=== PATIENT | male | born 1985 | race Caucasian/White ===

== ENCOUNTER 2024-07-22 13:21 | Outpatient (AMB) | payer BC, SELFPAY ==
--- NOTE | 2024-07-22 13:24 | MHC.PC.OV ---
Vital Signs 07/22/24 13:26 Height 5 ft 9 in Weight 159 lb 6 oz BMI 23.5 BP 124/82 Blood Pressure Location Lt brachial Position Sitting Pulse 97 Pulse Source Pulse Oximeter Pulse Oximetry (%) 97 Oxygen Delivery Method Room Air Intake Visit Reasons: establish care Allergies No Known Allergies Allergy (Verified 07/22/24 13:43) Medication List - Last Reconciled 07/22/24 by Elisa An PA-C No Known Home Meds Tobacco use date assessed: 07/22/24 Dental Screening Dental Screen Date: 07/22/24 Did you have a dental visit in the last 12 months?: No Did you have a dental problem in the last 6 months where you did not have access to dental care?: No Was dental information given to patient?: Patient has dentist HPI establish care HPI Details 39-year-old male coming office 1st time. Patient is not known to [facility]. Patient tells us today he has a history of hypothyroidism previously being treated on levothyroxine. His last PCP took him off of levothyroxine stated he did not need it. Since discontinuation he has been having issues with sweating profusely, hair thinning and mood changes. His sister was recently diagnosed with Princess's and pre cancer was determined by biopsy resulting in partial thyroidectomy. He also mentions having low energy and feeling fatigued throughout the day. 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 1. Little interest or pleasure in doing things: more than half the days 2. Feeling down, depressed, or hopeless: several days 3. Trouble falling or staying asleep, or sleeping too much: several days 4. Feeling tired or having little energy: more than half the days 5. Poor appetite or overeating: several days 6. Feeling bad about yourself - or that you are a failure or have let yourself or your family down: several days 7. Trouble concentrating on things, such as reading the newspaper or watching television: several days 8. Moving or speaking so slowly that other people could have noticed. Or the opposite - being so fidgety or restless that you have been moving around a lot more than usual: not at all 9. Thoughts that you would be better off or of hurting yourself in some way: several days Total score: 10 Depression Screening Interpretation: Positive Depression Screening Follow-up: Declines treatment Depression Screening Done: Yes 91073 - PHQ-9 Billing: Yes Source: Developed by Drs. Pavan Hall, Mila Walker, Gilles Nuñez and colleagues, with an educational desiree from [place]. Thrive Questionnaire Date Thrive assessed: 07/22/24 I am a: Patient What is your living situation today?: I have a steady place to live Within the past 12 months, did the food you bought not last and you didn't have the money to get more?: I choose not to answer this question Within the past 12 months, did you worry whether your food would run out before you got money to buy more?: I choose not to answer this question Do you have trouble paying for medicines?: No Do you have trouble getting transportation to medical appointments?: No Do you have trouble paying your heating and electricity bill?: No Do you have trouble taking care of your child, family member or friend?: No Do you have trouble with day-to-day activities such as bathing, preparing meals, shopping, managing finances, etc.?: No Are you currently unemployed and looking for a job?: No Are you interested in more education?: No Please select the resources that you would like help with: None Currently or been in a relationship where the following occur: I choose not to answer THRIVE Score: 0 AUDIT C Alcohol Use Questionnaire (AUDIT-C) 1. How often do you have a drink containing alcohol?: 2-3 times a week 2. How many drinks containing alcohol do you have on a typical day when you are drinking?: 1 or 2 3. How often do you have six or more drinks on one occasion?: Less than monthly Total Score: 4 YAJAIRA-7 AMB Questionnaire YAJAIRA-7 Date YAJAIRA - 7 assessed: 07/22/24 Feeling nervous, anxious, or on edge: 1 = Several days Not being able to stop or control worryin = Several days Worrying too much about different things: 1 = Several days Trouble relaxin = Several days Being so restless that it is hard to sit still: 0 = Not at all Becoming easily annoyed or irritable: 2 = More than half the days Feeling afraid as if something awful might happen: 2 = More than half the days Total YAJAIRA-7 score (0-4 normal; 5-9 mild; 10-14 moderate; 15-21 severe): 8 Source: Developed by Drs. Pavan Hall, Mila Walker, Gilles Nuñez and colleagues, with an educational desiree from [place]. YAJAIRA-7 Assessment Billing YAJAIRA-7 Assessment Tool: YAJAIRA-7 Assessment 14602 Review of Systems Const Denies body aches, Denies chills, Denies fever(s), Denies headache(s) and Denies poor appetite Eyes Reports no additional complaints ENT Denies dysphagia, Denies dizziness, Denies headache(s) and Denies odynophagia Card Denies chest pain, Denies syncope, Denies lightheadedness and Denies dyspnea Resp Denies cough and Denies dyspnea GI Denies abdominal pain, Denies dysphagia, Denies nausea, Denies odynophagia and Denies vomiting Reports no additional complaints Musc Reports no additional complaints and Denies abnormal gait Skin/Breast Reports system reviewed and no additional complaints, except as documented Neuro Denies abnormal gait, Denies dizziness, Denies syncope and Denies headache(s) Psych Reports no additional complaints Physical exam (Primary Care) Vital Signs: Last Vital Signs Pulse 97 07/22/24 13:26 BP 124/82 07/22/24 13:26 Pulse Ox 97 07/22/24 13:26 Oxygen Delivery Method Room Air 07/22/24 13:26 BMI result Body Mass Index 23.5 Tobacco/Smoking Status: Tobacco use Status Tobacco use date assessed 07/22/24 07/22/24 13:32 Patient Tobacco Use Status Never used Tobacco 07/22/24 13:35 e-Cigarette/Vaping Use Never Used 07/22/24 13:35 PHQ-9: PHQ-9 Score PHQ-9: Total score 10 07/22/24 13:51 Depression Screening Interpretation: Positive Depression Screening Follow-up: Declines treatment Thrive Assessment: Date of Thrive Assessment Date Thrive assessed 07/22/24 07/22/24 13:32 Currently or been in a relationship where the following occur: I choose not to answer Const General: cooperative, healthy appearing, comfortable and no acute distress Orientation/consciousness: patient oriented x3 HENMT Head: Yes normocephalic Ears: hearing grossly normal bilaterally General nose exam: Normal external nose present Eyes General: appearance normal, both eyes and all related structures Conjunctivae: conjunctivae normal Neck Neck: Yes full ROM and Yes no lymphadenopathy Thyroid: Thyroid normal, not diffusely enlarged, not firm, no masses and no nodules Resp Effort & Inspection: normal respiratory effort Auscultation: clear to auscultation bilaterally, no crackles, no rales, no rhonchi and no wheezes Cardio Rate: regular rate Rhythm: regular rhythm Skin General skin exam: no rashes or lesions noted Neuro General: patient oriented x3 Gait exam (Neuro): Normal gait present Extrem General: Yes normal to inspection, Yes full ROM and No edema Psych Affect: normal affect Attitude: cooperative Insight: Good insight present (Psych) Judgement: Good judgement present (Psych) Coding Level of Care Code New Pt Level 4 (79151) Diagnoses Hypothyroidism E03.9 Screening for hypercholesterolemia Z13.220 Excessive sweating R61 Polydipsia R63.1 Additional Codes YAJAIRA-7 Assessment Billing - YAJAIRA-7 Assessment Tool: YAJAIRA-7 Assessment 93233 ([id number]) PHQ-9 - 67162 - PHQ-9 Billing: Yes ([id number]) Assessment & Plan Assessment & Plan (1) Hypothyroidism: Code(s): E03.9 - Hypothyroidism, unspecified Category: Medical Plan: Ordered for updated blood work including thyroid antibodies to test for Princess's. On exam today patient's thyroid is not enlarged and no palpable nodules. Pending blood work can consider thyroid ultrasound for further evaluation. Plan to follow up in 1 month to review labs sooner if abnormality. Discussed restarting levothyroxine if needed. (2) Screening for hypercholesterolemia: Code(s): Z13.220 - Encounter for screening for lipoid disorders Category: Medical Plan: Tests ordered (3) Excessive sweating: Code(s): R61 - Generalized hyperhidrosis Category: Medical Plan: Patient complaining of excessive sweating since discontinuation of levothyroxine. Ordered for updated labs to look for underlying cause. (4) Polydipsia: Code(s): R63.1 - Polydipsia Category: Medical Plan: Patient complaining of increased thirst. Ordered for updated blood work including A1c to rule out diabetes mellitus. Plan Plan to follow up in 1 month or sooner if new problems arise. This note was constructed using voice recognition software. While every effort has been made to ensure accuracy and folded cloth taper, still areas may have been included sometimes these areas may affect the content or meeting of the given symptoms. Total time spent caring for the patient today was 30 minutes. This includes time spent before the visit reviewing the chart, time spent during the visit, and time spent after the visit and documentation. Orders: Orders Complete Blood Count Auto Diff Today Z00.00 - Encounter for general adult medical examination without abnormal findings Lipid Panel Today Z13.220 - Encounter for screening for lipoid disorders Vitamin B12 and Folate Today Z00.00 - Encounter for general adult medical examination without abnormal findings Vitamin D 25-OH Total Today Z00.00 - Encounter for general adult medical examination without abnormal findings Thyroglobulin Antibodies Today E03.9 - Hypothyroidism, unspecified TSH reflex Free T4 Today Z00.00 - Encounter for general adult medical examination without abnormal findings Free T4 (Free Thyroxine) Today Z00.00 - Encounter for general adult medical examination without abnormal findings Comprehensive Met. Panel Today Z00.00 - Encounter for general adult medical examination without abnormal findings Prolactin Today R61 - Generalized hyperhidrosis Hemoglobin A1c Today R61 - Generalized hyperhidrosis, R63.1 - Polydipsia Thyrotropin Receptor Antibody Today E03.9 - Hypothyroidism, unspecified
[2024-07-22 13:26] VITALS: BP 124/82; PULSE 97; O2SAT 97; BMI 23.5
== END 2024-07-22 14:01 | disposition home or self-care (01) ==
DX: E03.9 Hypothyroidism, unspecified (principal); Z13.220 Encounter for screening for lipoid disorders; R61 Generalized hyperhidrosis; R63.1 Polydipsia

== ENCOUNTER → 2024-07-22 13:21 | Outpatient (BNVA) | payer BC, SELFPAY | DX: E03.9 Hypothyroidism, unspecified (principal); R61 Generalized hyperhidrosis; R63.1 Polydipsia | CPT/HCPCS: 96127 ==

== ENCOUNTER 2024-07-29 10:08 | Outpatient (REF) | payer BC, SELFPAY ==
[2024-07-29 10:30] LABS: MANUAL DIFF FLAG NO
--- OUTSIDE RECORDS SUMMARY | 2024-07-29 10:54 | XMS_ITS | Data Portability ---
Author Organization [facility], , [facility] Address [address] [place] [address] Care Team Providers Care Director Of Enrollment Name Role Phone GAGAN JAMESON Ethanol Operations Manager VIPUL ORTEZ Primary Care Provider [phone] Assessment Encounter Date Assessment Date Assessment LastModified by Organization Details LastModified Time 04/23/2020 04/23/2020 Patient agreed to this visit via a secure telehealth platform due to the COVID -19 pandemic. Patient understands this is a scheduled visit and the usual procedures with regard to billing and confidentialit y apply. Patient was notified that the provider location is [facility] Patient location: home During the visit the patient? s medical history and medical record were reviewed. The patient was notified to call our office for worsening or urgent symptoms. [email or web address] Not available 04/23/2020 11:15:56 Plan of Treatment Reminders Order Date Submit Date Provider Last Modified By Organization Details Last Modified Time Details Appointments None recorded. Lab TSH, serum or plasma 2021 022 [facility], [address] [place] [address], [id number], 3 23:13:04 T3, free, serum or plasma 2021 022 [facility], [address] [place] [address], [id number], 3 23:13:01 T4, free, serum 2021 022 [facility], [address] [place] [address], [address], 3 23:13:02 mononucleo sis, heterophil e Ab, blood 2017 018 [facility], [address] [place] [address], [address], 8 14:55:00 Referral None recorded. Procedures None recorded. Surgeries None recorded. Imaging None recorded. Medication Orders amoxicilli n 875 mg-potassi um clavulanat e 125 mg tablet 2021 022 VINALHAVEN Sarah [address] ([facility]), [address] [place], [place], [id number], 2 10:12:08 levothyrox ine 50 mcg tablet 2019 020 [facility], [address] [place], [address], 0 11:19:39 Patient TargetsNo targets recorded. Patient Instructions Encounter Date Encounter Id Patient Instructions Last Modified By Organization Details Last Modified Time 09/11/2017 [id number] Spent 25 minutes of [id number] time, of which greater than 50% was in counseling. After a discussion of treatment options, which included consideration of best practices and patient preferences, the above treatment plan and objectives were adopted. [email or web address] Not available 09/12/2017 08:35:29 04/23/2020 [id number] Well Visit, Ages 18 to 65: Care Instructions [email or web address] Not available 04/23/2020 11:19:37 After a discussi on of treatment options, which included consideration of best practices and patient preferences, the above treatment plan and objectives were adopted. [email or web address] Not available 04/23/2020 12:09:20 11/06/2021 [id number] Well Visit, Ages 18 to 65: Care Instructions [email or web address] Not available 11/06/2021 10:31:35 Reason for Referral None Reported. Results Created Date Observation Date Name Description Value Unit Range Abnormal Flag Note LastModifiedBy Organization Detail LastModifiedTime 09/02/19 18 09/01/2017 BMP, serum or plasm a glucose 91 mg/dL 70-100 Not Available [facility] [address] [place] [address], [address], 09/01/2017 11:45:24 09/02/19 18 09/01/2017 BMP, serum or plasm a BUN 13 mg/dL 7-18 Not Available [address], [address], 09/01/2017 11:45:24 09/02/19 18 09/01/2017 BMP, serum or plasm a creatinine 1.1 mg/dL 0.8-1. 3 Not Available [address], [address], 09/01/2017 11:45:24 09/02/19 18 09/01/2017 BMP, serum or plasm a B/C 11.8 ratio Not Available [address], [address], 09/01/2017 11:45:24 09/02/19 18 09/01/2017 BMP, serum or plasm a GFR -non 83.5 mL/mi n Recom sean d GFR by the Natio nal Kidne y Found ation >60 mL/mi n/1.7 3m2 - Nova l <60 mL/mi n/1.7 3m2 - Chron ic Kidne y Disea se <15 mL/mi n/1.7 3m2 - Kidne y Failu re Not Available [address], [address], 09/01/2017 11:45:24 09/02/19 18 09/01/2017 BMP, serum or plasm a GFR - if 101.1 mL/mi n For Afric an Ameri can patie nts: Resul ts Multi plied by 1.21 Not Available [address], [address], 09/01/2017 11:45:24 09/02/19 18 09/01/2017 BMP, serum or plasm a sodium 144 mmol/ L 136-14 5 Not Available [address], [address], 09/01/2017 11:45:24 09/02/19 18 09/01/2017 BMP, serum or plasm a potassium 3.9 mmol/ L 3.5-5. 1 Not Available [address], [address], 09/01/2017 11:45:24 09/02/19 18 09/01/2017 BMP, serum or plasm a chloride 105 mmol/ L 96-107 Not Available [address], [address], 09/01/2017 11:45:24 09/02/19 18 09/01/2017 BMP, serum or plasm a anion gap 9.9 5.0-15 .0 Not Available [address], [address], 09/01/2017 11:45:24 09/02/19 18 09/01/2017 BMP, serum or plasm a CO2 29 mmol/ L 21-32 Not Available [address], [address], 09/01/2017 11:45:24 09/02/19 18 09/01/2017 BMP, serum or plasm a calcium 9.4 mg/dL 8.5-10 .3 Not Available [address], [address], 09/01/2017 11:45:24 09/02/19 18 09/01/2017 CBC WBC 7.5 K/? ? ?L 4.2-9. 1 Not Available [address], [address], 09/01/2017 11:52:25 09/02/19 18 09/01/2017 CBC RBC 4.94 M/? ? ?L 4.63-6 .08 Not Available [address], [address], 09/01/2017 11:52:25 09/02/19 18 09/01/2017 CBC HGB 16.2 g/dL 13.7-1 7.5 Not Available [address], [address], 09/01/2017 11:52:25 09/02/19 18 09/01/2017 CBC HCT 46.5 % 40.1-5 1.0 Not Available [address], [address], 09/01/2017 11:52:25 09/02/19 18 09/01/2017 CBC MCV 94.1 ? ? ?L 79.0-9 2.2 high Not Available [address], [address], 09/01/2017 11:52:25 09/02/19 18 09/01/2017 CBC MCH 32.8 pg 25.7-3 2.2 high Not Available [address], [address], 09/01/2017 11:52:25 09/02/19 18 09/01/2017 CBC MCHC 34.8 g/dL 32.3-3 6.5 Not Available [address], [address], 09/01/2017 11:52:25 09/02/19 18 09/01/2017 CBC plt 265.0 K/? ? ?L 163.0- 337.0 Not Available [address], [address], 09/01/2017 11:52:25 09/02/19 18 09/01/2017 CBC MPV 9.4 9.4-12 .4 Not Available [address], [address], 09/01/2017 11:52:25 09/02/19 18 09/01/2017 CBC neut% 53.1 % 34.0-6 7.9 Not Available [address], [address], 09/01/2017 11:52:25 09/02/19 18 09/01/2017 CBC neut# 4.0 1.8-5. 4 Not Available [address], [address], 09/01/2017 11:52:25 09/02/19 18 09/01/2017 CBC lymph % 34.0 % 21.8-5 3.1 Not Available [address], [address], 09/01/2017 11:52:25 09/02/19 18 09/01/2017 CBC lymph # 2.5 K/? ? ?L 1.3-3. 6 Not Available [address], [address], 09/01/2017 11:52:25 09/02/19 18 09/01/2017 CBC mono% 8.8 % 5.3-12 .2 Not Available [address], [address], 09/01/2017 11:52:25 09/02/19 18 09/01/2017 CBC mono# 0.7 0.3-0. 8 Not Available [address], [address], 09/01/2017 11:52:25 09/02/19 18 09/01/2017 CBC eo% 3.6 % 0.8-7. 0 Not Available [address], [address], 09/01/2017 11:52:25 09/02/19 18 09/01/2017 CBC eo# 0.3 0.0-0. 5 Not Available [address], [address], 09/01/2017 11:52:25 09/02/19 18 09/01/2017 CBC baso% 0.5 % 0.2-1. 2 Not Available [address], [address], 09/01/2017 11:52:25 09/02/19 18 09/01/2017 CBC baso# 0.0 0.0-0. 1 Not Available [address], [address], 09/01/2017 11:52:25 09/02/19 18 09/01/2017 CBC RDW-CV 12.4 % 11.6-1 4.4 Not Available [address], [address], 09/01/2017 11:52:25 09/02/19 18 09/01/2017 HbA1c (hemo globi n A1c), blood hemoglobin A1C 4.8 % 4.8-6. 0 Goal: <7% in Patie nts with Diabe meenu Not Available [address], [address], 09/01/2017 12:16:53 09/02/19 18 09/01/2017 HbA1c (hemo globi n A1c), blood estimated average glucose 91.1 mg/dL Not Available [address], [address], 09/01/2017 12:16:53 09/02/19 18 09/01/2017 TSH, serum or plasm a TSH 7.67 uIU/m L 0.50-6 .00 high The Ameri can Colle ge of Endoc rinol ogy and Ameri can Thyro id Assoc iatio n recom mend goal TSH value s betwe en 0.4-4 .0 mIU/m L. Not Available [address], [address], 09/01/2017 14:25:52 09/02/19 18 09/01/2017 vitam in D, 25-hy droxy , total , serum vitamin D 25-hydroxy EIA 14.1 NG/mL 20.0-9 9.9 low Thera py is based on measu remen t of total 25-OH D, with level s less than 20 ng/mL indic ative of Vitam in D defic iency . Level s betwe en 20ng/ mL and 30 ng/mL sugge st insuf ficie ncy. Optim al Level s are great er than 30 ng/mL . Not Available [address] [place], [address], 09/01/2017 14:25:52 09/02/19 18 09/03/2017 vitam in B12, serum vitamin B12 465 pg/mL 230-10 50 Not Available [facility] [address] [place], [address], 09/03/2017 12:59:50 09/02/19 18 09/03/2017 lyme igg + igm Ab, weste rn blot, serum lyme disease Ab(IgG),blot POSITI VE negati ve abnormal Not Available [facility] [place] [facility] [address], [address], 09/03/2017 23:46:00 09/02/19 18 09/03/2017 lyme igg + igm Ab, weste rn blot, serum 18 kd (IgG) band REACTI VE abnormal Not Available [facility] [place] [facility] [address], [address], 09/03/2017 23:46:00 09/02/19 18 09/03/2017 lyme igg + igm Ab, weste rn blot, serum 23 kd (IgG) band NON-RE ACTIVE normal Not Available [facility] [place] [facility] [address], [address], 09/03/2017 23:46:00 09/02/19 18 09/03/2017 lyme igg + igm Ab, weste rn blot, serum 28 kd (IgG) band REACTI VE abnormal Not Available [facility] [place] [facility] [address], [address], 09/03/2017 23:46:00 09/02/19 18 09/03/2017 lyme igg + igm Ab, weste rn blot, serum 30 kd (IgG) band NON-RE ACTIVE normal Not Available [facility] [place] [facility] [address], [address], 09/03/2017 23:46:00 09/02/19 18 09/03/2017 lyme igg + igm Ab, weste rn blot, serum 39 kd (IgG) band REACTI VE abnormal Not Available [facility] [address], [place], [address], 09/03/2017 23:46:00 09/02/19 18 09/03/2017 lyme igg + igm Ab, weste rn blot, serum 41 kd (IgG) band NON-RE ACTIVE normal Not Available [facility] [address], [place], [address], 09/03/2017 23:46:00 09/02/19 18 09/03/2017 lyme igg + igm Ab, weste rn blot, serum 45 kd (IgG) band REACTI VE abnormal Not Available [facility] [address], [place], [address], 09/03/2017 23:46:00 09/02/19 18 09/03/2017 lyme igg + igm Ab, weste rn blot, serum 58 kd (IgG) band REACTI VE abnormal Not Available [facility] [address], [place], [address], 09/03/2017 23:46:00 09/02/19 18 09/03/2017 lyme igg + igm Ab, weste rn blot, serum 66 kd (IgG) band NON-RE ACTIVE normal Not Available [facility] [address], [place], [address], 09/03/2017 23:46:00 09/02/19 18 09/03/2017 lyme igg + igm Ab, weste rn blot, serum 93 kd (IgG) band NON-RE ACTIVE normal Not Available [facility] [address], [place], [address], 09/03/2017 23:46:00 09/02/19 18 09/03/2017 lyme igg + igm Ab, weste rn blot, serum lyme disease Ab(IgM),blot NEGATI VE negati ve normal Not Available [facility] [place] [facility] [address], [address], 09/03/2017 23:46:00 09/02/19 18 09/03/2017 lyme igg + igm Ab, weste rn blot, serum 23 kd (IgM) band REACTI VE abnormal Not Available [facility] [place] [facility] [address], [address], 09/03/2017 23:46:00 09/02/19 18 09/03/2017 lyme igg + igm Ab, weste rn blot, serum 39 kd (IgM) band NON-RE ACTIVE normal Not Available [facility] [place] [facility] [address], [address], 09/03/2017 23:46:00 09/02/19 18 09/03/2017 lyme igg + igm Ab, weste rn blot, serum 41 kd (IgM) band NON-RE ACTIVE normal As per CDC crite gianna, a Lyme disea se IgG Immun oblot must show react ivity to at least 5 of 10 speci fic borre lial prote ins to be consi dered posit dede; simil arti, a posit dede Lyme disea se IgM immun oblot requi res react ivity to 2 of 3 speci fic borre lial prote ins. Altho ugh consi dered negat dede, IgG react ivity to fewer speci fic borre lial prote ins or IgM react ivity to only 1 prote in october indic ate recen t B. burgd orfer i infec tion and warra nt testi ng of a later sampl e. A posit dede IgM but negat dede IgG resul t obtai kaitlyn more than a month after onset of sympt oms likel y repre sents a false - posit dede IgM resul t rathe r than acute Lyme disea se. In rare insta nces, Lyme disea se immun oblot react ivity may repre sent antib odies induc ed by expos ure to other chel chete s. Not Available [employer] [facility] [address] Jose De Jesus Vasquez, [place], [address], 09/03/2017 23:46:00 02/13/20 18 02/12/2018 pocst pa strep A POC NEGATI VE Not Available [address], [address], 02/12/2018 12:18:33 02/13/20 18 02/12/2018 monon ucleo sis, heter ophil e Ab, blood mono NEGATI VE negati ve Not Available [address], [address], 02/12/2018 14:54:59 02/13/20 18 02/12/2018 vitam in D, 25-hy droxy , total , serum vitamin D 25-hydroxy EIA 35.2 NG/mL 20.0-9 9.9 Thera py is based on measu remen t of total 25-OH D, with level s less than 20 ng/mL indic ative of Vitam in D defic iency . Level s betwe en 20ng/ mL and 30 ng/mL sugge st insuf ficie ncy. Optim al Level s are great er than 30 ng/mL . Not Available [address], [address], 02/12/2018 15:27:58 02/13/20 18 02/12/2018 TSH, serum or plasm a TSH 3.74 uIU/m L 0.50-6 .00 The Ameri can Colle ge of Endoc rinol ogy and Ameri can Thyro id Assoc iatio n recom mend goal TSH value s betwe en 0.4-4 .0 mIU/m L. Not Available [address], [address], 02/12/2018 15:42:27 04/18/2004/19/2020 TSH, serum or plasm a TSH 1.79 mIU/L 0.40-4 .50 normal Not Available [facility] [place] [facility] [address], [place], [address], 04/19/2020 04:36:42 10/31/19 22 10/31/2021 TSH TSH 2.10 mIU/L 0.40-4 .50 normal Not Available [facility] [place] [facility] [address], [place], [address], 10/31/2021 10:15:03 07/21/19 23 07/21/2022 T3, FREE T3, free 3.7 pg/mL 2.3-4. 2 normal Not Available [facility] [place] [facility] [address], [place], [address], 07/21/2022 23:13:01 07/21/19 23 07/21/2022 T4, FREE T4, free 1.1 NG/dL 0.8-1. 8 normal Not Available [facility] [place] [facility] [address], [place], [address], 07/21/2022 23:13:02 07/21/19 23 07/21/2022 TSH TSH 3.79 mIU/L 0.40-4 .50 normal Not Available [facility] [address], [place], [address], 07/21/2022 23:13:04 Result Notes None recorded. Problems Name Problem SNOMED Code Status Onset Date Resolution Date Notes Provider Name and Address Organization Details Recorded Time Cannabis dependence, episodic 057887817 Completed 09/01/2017 Leonid Avalos MD [address] [place], [place] [address] [place], [address], [facility] 8 15:26:23 Hyperprolac tinemia 814542163 Completed 09/01/2017 Leonid Avalos MD [address] [place], [place] [address], [address], [facility] 8 15:26:21 Nondependen t cannabis abuse, continuous 972610305 Active 2021 Linh Hussein PA-C [address] [facility] [place], [address], [facility] 2 16:28:53 Thyroid stimulating hormone level above reference range 131679561 Active 2021 Linh Hussein PA-C [address] [place], [place] [address], [address], [facility] 2 16:28:54 Problem Notes None recorded. Procedures Surgical History Date Name Laterality Status Provider Name and Address Organization Details Recorded Time 0 prevention-orion ual alcohol misuse screening completed Shanda Sánchez LPN [facility] 04/23/2020 10:48:40 8 POC Strep Testing completed [facility] 02/12/2018 12:05:57 7 POC Urinalysis Testing completed Maegan Lim [facility] 10/13/2016 11:08:46 6 POC Strep Testing completed [facility] 04/18/2016 10:20:19 Other (specify) completed Jaymie Pryor MD [address] [place] [address], [address], [facility] 01/03/2014 11:23:07 Imaging Results None recorded. Procedure Notes None recorded. Medical Equipment None Reported. Allergies No known drug allergies Medications Name Sig Start Date Stop Date Status Note LastModified by Organization Details LastModified Time penicilli n V potassium 500 mg tablet TK 1 T PO Q 8 H FOR 10 DAYS 02/23 completed 10/13/16 pt no longer using.sg Not Available Not Available Not Available oxycodone -acetamin ophen 5 mg-325 mg tablet TK 1 T PO Q 4 TO 6 HOURS PRF PAIN. WILL CAUSE DROWSINE SS. active Not Available Not Available No t Available levothyro xine 50 mcg tablet TAKE ONE TABLET BY MOUTH EVERY DAY 2021 active 05/15/22 states medicati on was stopped Not Available Not Available Not Available omeprazol e 20 mg capsule,d elayed release TK 1 C PO QD 09/01 completed Not Available Not Available Not Available ergocalci ferol (vitamin D2) 1,250 mcg (50,000 unit) capsule TAKE 1 CAPSULE BY MOUTH EVERY WEEK FOR 56 DAYS 04/23 completed Not Available Not Available Not Available clotrimaz ole 1 % topical cream APPLY TO THE AFFECTED AND SURROUND ING AREAS OF SKIN BY TOPICAL ROUTE 2 TIMES PER DAY IN THE MORNING AND EVENING 04/15 completed prn Not Available Not Available Not Available doxycycli ne hyclate 100 mg tablet Take 1 tablet twice a day by oral route for 28 days. 02/12 completed Not Available Not Available Not Available amoxicill in 875 mg-potass ium clavulana te 125 mg tablet TAKE 1 TABLET BY MOUTH TWICE DAILY FOR 7 DAYS active Not Available Not Available No t Available ProAir HFA 90 mcg/actua tion aerosol inhaler Inhale 2 puffs every 6 hours by inhalati on route as needed. 09/01 completed Not Available Not Available Not Available omeprazol e 20 mg tablet,de layed release Take 1 tablet every day by oral route. 04/15 completed Not Available Not Available Not Available Vitals Date Recorded Body height Body mass index (BMI) Body weight Systolic blood pressure Diastolic blood pressure Provider Name and Address Organization Details Last Updated DateTime 09/11/2017 175.26 cm 21.3 kg/m2 87068.4 g 96 mm[Hg] 60 mm[Hg] Lindsey White [facility] 8 10:32:04 Date Recorded Body height Body mass index (BMI) Body weight Heart rate Body temperature Systolic blood pressure Diastolic blood pressure Provider Name and Address Organization Details Last Updated DateTime 8 175.26 cm 21 kg/m2 77479.2 2 g 76 /min 98 [degF] 122 mm[Hg] 74 mm[Hg] Pen[facility] 8 12:05:09 Date Recorded Body height Body mass index (BMI) Body weight Provider Name and Address Organization Details Last Updated DateTime 04/23/2020 175.26 cm 23 kg/m2 75169.41 g Shanda Sánchez LPN [facility] 04/23/2020 10:59:21 Date Recorded Body weight Body mass index (BMI) Body height Heart rate Systolic blood pressure Diastolic blood pressure Provider Name and Address Organization Details Last Updated DateTime 2 47932.9 2 g 22.4 kg/m2 176.53 cm 68 /min 114 mm[Hg] 68 mm[Hg] Latonia Gant MA [facility] 2 10:03:22 Date Recorded Body height Body mass index (BMI) Body weight Body temperature Heart rate Oxygen saturation Oxygen saturation in Arterial blood by Pulse oximetry Systolic blood pressure Diastolic blood pressure Provider Name and Address Organization Details Last Updated DateTime 2 176.53 cm 21.6 kg/m2 28360.3 7 g 98.3 [degF] 94 /min 99 % 99 % 120 mm[Hg] 68 mm[Hg] Dakota Dowell MA [facility] 2 09:50:54 Social History Question Answer Notes LastModified by Organizat ion Details LastModified Time Tobacco Smoking Status [facility] 11/06/2021 09:55:47 Do You Have An Advance Directive? Yes Information not available 01/03/2014 What Is Your Level Of Alcohol Consumption? Occasional Information not available 05/15/2022 Do You Wear A Helmet When Biking? Yes [email or web address] Information not available 04/23/2020 What Is Your Level Of Caffeine Consumption? Moderate 1/day Information not available 11/06/2021 How Much Tobacco Do You Chew? None [email or web address] Information not available 10/13/2016 Are You Currently Employed? Yes Information not available 11/06/2021 What Type Of Diet Are You Following? REGULAR Information not available 11/06/2021 Which Illicit Or Recreational Drugs Have You Used? None 05/15/22-previo usly Medical Marijuana Information not available 05/15/2022 Do You Or Have You Ever Used E-cigarettes Or Vape? Never Used Electronic Cigarettes [email or web address] Information not available 04/23/2020 What Is Your Occupation? [employer] [email or web address] Information not available 04/23/2020 When Did You Quit Smoking? 6-10yearssinc [email or web address] e Information not available 11/06/2021 Are There Any Guns Present In Your Home? No Information not available 04/23/2020 Do You Use Insect Repellent Routinely? Yes Information not available 11/06/2021 Live Alone Or With Others? With Others Information not available 01/03/2014 Patient Has Health Care Proxy Signed And In Chart No Jodi [email or web address] Information not available 04/05/2018 Marital Status Domestic Partner [email or web address] Information not available 04/23/2020 Mosquito Repellent Used Routinely Yes [email or web address] Information not available 04/23/2020 What Was The Date Of Your Most Recent Tobacco Screening? 05/15/2022 Information not available 05/15/2022 How Many Children Do You Have? 0 Information not available 01/03/2014 What Is Your Relationship Status? Single Information not available 11/06/2021 Do You Use Your Seat Belt Or Car Seat Routinely? Yes Information not available 11/06/2021 Seat Belts Used Routinely Yes Information not available 01/03/2014 Smoke Alarm In Home Yes Information not available 04/23/2020 Do You Have Smoke And Carbon Monoxide Detectors In Your Home? Yes Information not available 11/06/2021 At What Age Did You Start Smoking Tobacco? 19 Smoked On & Off For 3 Yrs Information not available 05/15/2022 Are You Passively Exposed To Smoke? No Information not available 11/06/2021 Do You Or Have You Ever Used Smokeless Tobacco? Never Used Smokeless Tobacco [email or web address] Information not available 04/23/2020 General Stress Level Medium Varies Situational Information not available 04/23/2020 Do You Use Any Illicit Or Recreational Drugs? Yes Information not available 11/06/2021 Do You Use Sunscreen Routinely? Yes [email or web address] Information not available 04/23/2020 How Many Years Have You Smoked Tobacco? 2 Information not available 05/15/2022 Do You Or Have You Ever Used Any Other Forms Of Tobacco Or Nicotine? No Information not available 11/06/2021 Sex: Unknown Functional Status Question Answer Note LastModified by Organization D etails LastModified Time What is your exercise level? Moderate daily Information not available 11/06/2021 Mental Status None recorded. Family History Relationship Description Onset Age of this Age Resolved Age Notes LastModified by Organization Details LastModified Time Paternal Grandfather Myocardial infarction [email or web address] Not available 01/17 08:53:59 Maternal Grandfather Malignant tumor of gallbladder [email or web address] Not available 01/06 08:53:59 Paternal Aunt Malignant tumor of breast [email or web address] Not available 2014 08:53:59 Father Gynecomastia [email or web address] Not avail able 01/17/2015 08:53:59 Paternal Uncle Gynecomastia [email or web address] Not available 01/06 08:53:59 Medical History No medical history recorded. Immunizations Vaccine Type Date Status Note Provider Nam e and Address Organization Details Recorded Time COVID-19, mRNA, LNP-S, PF, 30 mcg/0.3 mL dose 08/29/2020 completed [facility] 11/06/2021 09:53:54 COVID-19, mRNA, LNP-S, PF, 30 mcg/0.3 mL dose 09/19/2020 completed [facility] 11/06/2021 09:54:01 Past Encounters Encounter ID Performer Location Encounter Start Date Encounter Closed Date Diagnosis/Indication Diagnosis SNOMED-CT Code Diagnosis ICD10 Code Diagnosis Note [id number] Batool Hsu [place] [facility], OFFICE [address] [place] [address] 01/03/2014 10:21:04 01/03/2014 12:06:37 Adult health examination [id number] see Risk Assessment and Lifestyle Change Counseling section above Counseling [id number] Fatigue 67300582 Nausea 260208888 Palpitations 19217286 Anxiety 14975256 Tinea corporis 63027182 [id number] [facility], OFFICE [address] [place] [address] 11/08/2014 09:49:28 11/09/2014 08:32:18 Dyspnea 240778453 Patient with intermitte nt dyspnea triggered by smoking. No respirator y difficulty currently. Normal O2 sat and normal respirator y exam. Suspect reactive airway. Check CXR. Trial of Albuterol prn. Follow up in 2 months for a PHA visit. Consider Spirometry based on his response to Albuterol. Gynecomastia [id number] Pat ient with bilateral breast developmen t. No pain. No discharge or bleeding. However, he is bothered by them cosmetical ly. Will check TSH, Prolactin, Testostero ne and LFT. [id number] Endocrino logy, [facility] [address] [facility] [place] [address] 01/17/2015 08:28:55 01/17/2015 09:09:06 Cannabis dependence, episodic [id number] -encourage cessation marijuana Hyperprolactinemia [id number] -encourage cessation marijuana -macroprol actin [id number] Leonid Avalos MD , [facility], [address] [place] [address] 04/18/2016 10:08:47 04/22/2016 09:54:56 Streptococcal sore throat [id number] J02.0 Patient with clinical presentati on of Strep pharyngiti s. Also with positive Rapid Strep test. Encouraged supportive care with ample hydration and saline gargle. Will treat with PCN VK 500mg po tid for 10 days. May continue with NSAIDs prn for fever/pain . Advised to contact the clinic with any worsening symptoms. Indication s for UC/ER use reviewed. Failure to gain weight [id number] R62.51 Reports difficulty gaining weight. No acute weight loss. Denies pain or fatigue. Check TSH/CMP and CBC. [id number] Leonid Avalos MD , [facility], [address] [place] [address] 10/13/2016 10:57:52 10/13/2016 12:11:06 Tinea corporis [id number] B35.4 Involving the groin area. Advised to keep the area clean and dry. Treat with Clotrimazo le cream. Abdominal pain 51018001 R10.9 Patient with ongoing, generalize d abdominal pain. No clinical evidence of acute abdomen. No abdominal distention . Frequent bowel movements (3-4x/day) with irritation at the anus. Recommende d Sitz bath and Preparatio n-H pads. Has a small non-inflam ed external hemorrhoid . Symptoms worse with increased bread consumptio n. Recommende d food diary. Check TTG Ab, LFT and Amylase/Li pase. Trial of Omeprazole given pain triggered by food intake. Indication s for UC/ER use discussed. Follow up in 1 month. Loose stool [id number] R1 9.5 Took antibiotic (PCN) 2 months ago for Strep pharyngiti s. Will check for stool studies including C. diff, O&P and stool culture. No BRBPR or melena. [id number] XIMENA Michaels , [facility], [address] [place] [address] 02/23/2017 10:44:53 02/24/2017 07:54:02 Acute sinusitis 71501181 J01.90 Pt presents today for evaluation of facial pain and congestion that has been persisting for several days. Pt has tried OTC remedies without relief. Pt history and physical exam are consistent with sinusitis. Discussed pathogenes is of sinusitis. Recommend pt continue with the supportive care of nasal saline, steam/hot showers, pushing fluids, ibuprofen or tylenol as needed for pain, cough syrup as needed for cough and rest. Due to the severity and persistanc e of pt symptoms we will also treat with antibiotic s as listed below. Pt will follow up if symptoms persist or worsen at any time. [id number] Berry Cardozo , [facility], [address] [place] [address] 04/15/2017 08:41:31 04/15/2017 16:17:45 Dysphagia 08227152 R13.10 [id number] Leonid Avalos MD , [facility], [address] [place] [address] 09/01/2017 08:25:39 09/02/2017 09:50:10 Fatigue 23266185 R53.83 History of Lyme disease at age 15, s/p treatment at that time. Now with 2-3 months duration of multiple constituti onal symptoms, including light sensitivit y, vision issues (transient blurriness ), joint pain, short term memory loss, occasional rashes, muscle aches, dizziness, facial numbness, neck stiffness and tactile fever. Has FROM of neck and other joints. Underlying IBS symptoms. Denies any recent tick bites. Recommende d Optometry evaluation . Has decreased THC use (now smoking every other day). Also significan tly reduced alcohol use. Will check TSH, CBC, Lyme Ab, Vitamin B12, Vitamin D, BMP and Hgb A1c. Follow up in 1 week for re-evaluat ion. Vitamin D deficiency 347 27071 E55.9 [id number] Leonid Avalos MD , [facility], [address] [place] [address] 09/11/2017 10:06:29 09/11/2017 15:41:53 Hypothyroidism 78395079 E03.9 Patient with fatigue. Found to have elevated TSH, markedly decreased Vitamin D and positive Lyme IgG (5/10). Treatments for all three instituted . Now on Levothyrox ine 50mcg daily. Recommende d repeat TSH in 2 months. Vitamin D deficiency 347 67476 E55.9 Started on Vitamin D 50,000 units weekly. Advised to take Vitamin D 2,000 units daily after 2 months Lyme disease 91202192 A6 9.20 Started 4-week treatment of Doxycyclin e. States he is already feeling better. Discussed about probiotic use. Advised to schedule for a wellness visit. [id number] Jeyson Lopez MD , [facility], [address] [place] [address] 02/12/2018 11:42:48 02/15/2018 12:47:45 Acute upper respiratory infection 72404927 J06.9 Educated patient that URI is a viral illness of the upper airways. It is not bacterial and does not benefit from antibiotic s. Average duration of URI is 7-10 days but in a recent trial, treatment at 7-10 days of illness with antibiotic s, intranasal steroids, or placebo did not alter natural history at 3 weeks. Recommende d symptomati c treatments including NSAIDS, semi-uprig ht sleep position, antihistam venkatesh at HS, limited course of nasal sympathomi metics and/or cough syrups, and nasal saline rinses with soft squeeze bottle or Neti pot. Return for fevers > 101 for 3 days, worsening sinus pain, or failure to resolve in 2-4 weeks. Pharyngitis 162069454 J0 2.9 [id number] Leonid Avalos MD , [facility], [address] [place] [address] 04/23/2020 10:54:02 04/24/2020 08:29:40 Adult health examination 481543073 Z00.00 Encouraged Influenza vaccine. Recommende d to see [facility] to see if he could qualify/bu y-in for [facility] . Counseling [id number] Z71 .9 Depression screening 171 327120 Z13.89 depression screening tool administer ed, entered into emr, scored and discussed, time greater than 7.5 minutes Screening for alcohol abuse [id number] Z13.39 Hypothyroidism 60434497 E03.9 Recent TSH therapeuti c at 1.79 (04/2020). Will continue the current dose of Levothyrox ine. [id number] ARNULFO Antonio, [facility], [address] [place] [address] 11/06/2021 09:40:47 12/05/2021 16:45:49 Adult health examination 195055865 Z00.00 Wellness exam: -Labs 10/30/21 and previous historical labs reviewed; vaccines reviewed. Counseling 978443402 Z71 .9 Depression screening 171 068726 Z13.31 depression screening tool administer ed, entered into emr, scored and discussed, time greater than 7.5 minutes Screening for alcohol abuse [id number] Z13.[address] imulating hormone level above reference range 234731122 R79.89 Pt had elevated TSH back in 08/2017 in the 7 range. Pt had Lyme disease at the time of this elevated TSH also. Did not have free T3 or T4 checked or thyroid ABs. Has been on lower dose levothyrox ine 50 mcg QD. Last TSH 10/30/21 was 2.10.Pt asked whether he needs to be on levothyrox ine. Discussed he may have had transientl y elevated TSH during the time of having acute Lyme disease. He can cut down to 25 mcg QAM for 2 weeks and then if he feels well, stop the levothyrox ine. TFTs ordered to be done in 6 weeks and will see if he is euthyroid without medication . Nondepende nt cannabis abuse, continuous 481656533 F12.10 Discussed adverse effects of daily chronic use and pt wishes to cut down also. [id number] Aminah Lopez NP , [facility], [address] [place] [address] 05/15/2022 09:38:58 05/15/2022 15:05:13 Vaccination delayed [id number] 20914 Z28.39 flu & Td Acute maxi llary sinusitis 30877211 J01.00 Health Concerns Section Related Observation LastModified by Organization Detai ls LastModified Time None Recorded Concern Status LastModified by Organization Details LastModified Time None Recorded Advance Directives Directive Y: Payers Encounter Date Sequence Insurance Name Policy Number Policy Monreal Covered Member ID Monreal Member ID Guarantor Name 09/11/2017 1 [facility] - [place]EDUCTIBLE (HMO) [id number] Duncan P Rey [id number] Duncan P Rey 02/12/2018 1 [facility]: [place] [employer] - [place]EDUCTIBLE (HMO) [id number] Duncan P Rey [id number] Duncan P Rey 04/23/2020 1 *SELF PAY* Dy angela P Rey 11/06/2021 1 *SELF PAY* Dy angela P Rey 05/15/2022 1 *SELF PAY* Dy angela P Rey Notes Date Note Type Note Provider Name and Address Organization Details Recorded Time 09/11/2017 text/html Patient seen recently due to 2-3 months duration of multiple constitutional symptoms. Reported sunlight sensitivity, vision issues (transient blurriness). multiple joint pain, short-term memory loss, occasional rashes, muscle aches, dizziness and facial numbness. Diagnosed with low Vitamin D, elevated TSH and 5/10 positive Lyme IgG. Treatments for all 3 started. Although only short duration, he states his symptoms are improving. Previously diagnosed with Lyme at age 15. Some neck stiffness, but has full ROM. Has tactile fever. Leonid Avalos MD [address] [place] [address], [phone], [facility] 09/12/2017 08:35:52 02/12/2018 text/html pt of Dr Aavlos [address] x 12 days, white spots, fever, diaphoretic. ear ache, had stopped thyroid med- felt sick at time taking. sl nasla ocngestion, cough, nausea. Jeyson Lopez MD [address] [place] [address], [phone], [facility] 02/12/2018 21:33:35 04/23/2020 text/html Physical Exam/MaleReported bypatient.PHAPatient is here for a Wellness Visit. He describes his health status as good. Patient's health is better than last year. [employer] [place]: Self pay as no current insurance. Last evaluated 2 years ago. Had labs done recently. Stopped smoking marijuana completely. 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 Works at [employer]. Previously seen for multiple constitutional symptoms. Reported sunlight sensitivity, vision issues (transient blurriness), multiple joint pain, short-term memory loss, occasional rashes, muscle aches, dizziness and facial numbness. Diagnosed with low Vitamin D, elevated TSH and 5/10 positive Lyme IgG. Treatments for all 3 started. All these symptoms have improved. Also feels stopping THC improved symptoms as well. Improved mood and energy after stopping THC. Previously diagnosed with Lyme at age 15. Time for intake: {{1 2 3 4 5 6* 7 8 9 10 11 12 13 14 15 1 6 17 18 19 20 21 22 23 24 25}} minutes. Leonid Avalos MD [address] [place] [address], [phone], [facility] 04/23/2020 12:10:15 11/06/2021 text/html Risk Assessment and Lifestyle Change Counseling 18-50Reported bypatient.Coronary Artery Disease Risk Assesment:Family History of Coronary Artery Disease; No personal history of diabetes; No history of peripheral vascular disease, AAA, or carotid disease; No personal history of coronary artery disease Breast Cancer Risk Assessment:Family history of breast cancer one first degree relative Lung Cancer Risk Assessment:Current smoker; daily MJ; no tobacco Cognitive/Behavioral Risk Assessment:Personal history of mental illness(anxiety) Safety Risk Assessment:No evidence of abuse/neglect Diet:Counseled about eating a diet low in trans and saturated fats and high in fiber, fruits and vegetables; Counseled about the importance of maintaining a positive calcium balance and taking 1000 iu Vitamin D daily. Exercise counseling:Discussed the importance of daily physical activity; Discussed the importance of weight bearing exercise Wellness exam Had covid late May. About 2.5 weeks ago had about 2-3 days of vomiting, diarrhea, fatigued. He tested positive on multiple home rapid covid tests at that time also. States he had also eaten recalled Jif peanut butter preceeding sxs. Is back to baseline.COVID vaccinated. 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 Lives with girlfriend. No children. Smokes MJ multiple times daily every day; says it is routine part of every day life for many years, starting late teens. States has alcoholism in the family and so tries to stay away from ETOH in general. He realizes that the daily MJ can have adverse effects and is thinking about cutting down. Linh Hussein PA-C [address] [place], [phone], [facility] 11/06/2021 16:32:58 05/15/2022 text/html Patient is here today for nasal congestion with sinus pain, jaw pain ,H/A , nausea, sweating, bad taste in the mouth x 3 or more weeks - Lots PND - had dental xrays and dentist said sinuses looked inflamed - No cough - multiple covid tests neg - had it last Xmas time -Taking dayquil, ibuprofen - sx keep recurringHas cats - not newNo known allergiesHas tried netti pot, humidifier, otc analgesics? if could be sinus infection Aminah Lopez NP [address] [place], [address], [facility] 05/15/2022 10:16:06
[2024-07-29 11:38] LABS: Basophils Absolute Auto 0.1 X10*3/uL (0.0-0.2); Basophils Percent Auto 0.9 % (0-2); Eosinophils Absolute Auto 0.4 X10*3/uL (0.0-0.4); Eosinophils Percent Auto 3.9 % (0-4); Hematocrit 45.1 % (42.0-52.0); Hemoglobin 15.8 g/dl (14.0-18.0); Imm Gran Abs Auto 0.24 X10*3/uL (0.00-0.03); Imm Gran Pct Auto 2.4 % (0.0-0.4); Lymphocytes Absolute Auto 3.1 X10*3/uL (1.2-4.9); Lymphocytes Percent Auto 31.4 % (20-40); Mean Corpuscular Hemoglobin 32.7 pg (27.0-33.0); Mean Corpuscular Volume 93.4 fL (80.0-98.0); Mean Platelet Volume 9.6 fL (9.4-12.4); Monocytes Absolute Auto 0.9 X10*3/uL (0.1-1.2); Monocytes Percent Auto 8.5 % (2-11); Neutrophils Absolute Auto 5.3 x10*3/uL (2.0-8.3); Neutrophils Percent Auto 52.9 % (45-73); Platelet Count 308 X10*3/uL (160-400); Red Blood Count 4.83 X10*6/uL (4.60-5.80); Red Cell Distribution Width 12.2 % (11.0-16.0)
[2024-07-29 11:44] LABS: Estimated Average Glucose 88 mg/dL; Hemoglobin A1C 116.2689 umol/L; Hemoglobin A1c % 4.7 % (<6.0); Total Hemoglobin (HGBA1C) 4159.2194 umol/L
[2024-07-29 12:23] LABS: Alanine Aminotransferase 28 U/L (0-40); Albumin Level 4.3 g/dL (3.5-5.0); Alkaline Phosphatase 48 U/L (39-117); Anion Gap 13 (12-20); Aspartate Amino Transferase 22 U/L (5-37); Bilirubin Total 0.9 mg/dL (0.0-1.0); Blood Urea Nitrogen 15 mg/dL (9-16); Calcium 9.6 mg/dL (8.4-10.2); Carbon Dioxide 23 mmol/L (22-29); Chloride 107 mmol/L (96-108); Cholesterol 227 mg/dL (<200); Estimated Glomerular Filt Rate > 60; Glucose Random 84 mg/dL (60-115); HDL Cholesterol 66 mg/dL (>40); LDL Cholesterol Calculated 137 mg/dL (<100); Potassium 3.8 mmol/L (3.3-5.1); Sodium 139 mmol/L (135-145); Total Protein 7.8 g/dL (6.5-8.0); Triglycerides 122 mg/dL (<150)
[2024-07-29 12:33] LABS: Free T4 (Free Thyroxine) 0.83 ng/dL (0.71-1.85); TSH reflex Free T4 1.97 uIU/mL (0.32-4.0)
[2024-07-29 12:56] LABS: Folate 10.2 ng/mL (> or = 4.0); Vitamin B12 323 pg/mL (200-900)
[2024-07-30 05:08] LABS: Prolactin 16.3 ng/mL (2.0-18.0)
[2024-08-01 19:33] LABS: Thyroglobulin Antibodies <1 IU/mL (< or = 1)
[2024-08-02 14:17] LABS: Thyrotropin Receptor Antibody <1.00 IU/L (<=2.00)
== END 2024-07-29 10:09 | disposition home or self-care (01) ==
LOC: HO.LAB 10:08
DX: Z00.00 Encounter for general adult medical examination without abnormal findings (principal); Z13.220 Encounter for screening for lipoid disorders; E03.9 Hypothyroidism, unspecified; R61 Generalized hyperhidrosis; R63.1 Polydipsia; Z13.1 Encounter for screening for diabetes mellitus
CPT/HCPCS: 36415; 80053; 80061; 82306; 82607; 82746; 83036; 83520; 84146; 84439; 84443; 85025; 86800

== ENCOUNTER 2024-08-25 13:37 | Outpatient (AMB) | payer BC, SELFPAY ==
--- NOTE | 2024-08-25 13:45 | MHC.PC.OV ---
Vital Signs 08/25/24 13:59 Height 5 ft 9 in Weight 154 lb 8 oz BMI 22.8 BP 130/86 Blood Pressure Location Rt brachial Position Sitting Pulse 106 H Pulse Source Pulse Oximeter Pulse Oximetry (%) 99 Oxygen Delivery Method Room Air Intake Visit Reasons: f/u thyoid and labs Intake Note: Patient is here to follow up on Thyroid and lab results. Development Scientist Required: No Tanyard Worker: Not Required per policy Accompanied by: Self / Same As Patient Allergies No Known Allergies Allergy (Verified 08/25/24 14:19) Medication List - Last Reconciled 08/25/24 by Elisa An PA-C No Known Home Meds Tobacco use date assessed: 08/25/24 Dental Screening Dental Screen Date: 07/22/24 HPI f/u thyoid and labs HPI Details 39-year-old male with past medical history of hypothyroidism and excessive sweating last seen 07/2024 coming in for follow up on lab work. Current issues include mild leukocytosis, borderline elevated cholesterol levels, and a chronic history of low vitamin D, with the patient reporting fatigue concurrently. The patient reports a longstanding history of anxiety manifesting as sleep disturbances and occasional nocturnal eating, alongside increased anxiety levels over perceived health fears. A desire to initiate medication for anxiety was expressed following past failed therapeutic interventions. The patient has maintained only a low-normal vitamin B12, indicating no immediate need for intervention. 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 Cognitive needs: No Hearing needs: No Vision needs: No Questionnaire Thrive Questionnaire Date Thrive assessed: 07/22/24 I am a: Patient What is your living situation today?: I have a steady place to live Within the past 12 months, did the food you bought not last and you didn't have the money to get more?: I choose not to answer this question Within the past 12 months, did you worry whether your food would run out before you got money to buy more?: I choose not to answer this question Do you have trouble paying for medicines?: No Do you have trouble getting transportation to medical appointments?: No Do you have trouble paying your heating and electricity bill?: No Do you have trouble taking care of your child, family member or friend?: No Do you have trouble with day-to-day activities such as bathing, preparing meals, shopping, managing finances, etc.?: No Are you currently unemployed and looking for a job?: No Are you interested in more education?: No Please select the resources that you would like help with: None Currently or been in a relationship where the following occur: I choose not to answer THRIVE Score: 0 YAJAIRA-7 AMB Questionnaire YAJAIRA-7 Date YAJAIRA - 7 assessed: 07/22/24 Source: Developed by Drs. Pavan Hall, Mila Walker, Gilles Nuñez and colleagues, with an educational desiree from [employer]. Review of Systems Const Denies body aches, Denies chills, Denies fever(s), Denies headache(s) and Denies poor appetite Eyes Reports no additional complaints ENT Denies dizziness and Denies headache(s) Card Denies chest pain, Denies lightheadedness and Denies dyspnea Resp Denies cough and Denies dyspnea GI Reports no additional complaints Reports no additional complaints Musc Reports no additional complaints and Denies abnormal gait Skin/Breast Reports system reviewed and no additional complaints, except as documented Neuro Denies abnormal gait, Denies dizziness and Denies headache(s) Psych Reports no additional complaints Physical exam (Primary Care) Vital Signs: Last Vital Signs Pulse 106 H 08/25/24 13:59 BP 130/86 08/25/24 13:59 Pulse Ox 99 08/25/24 13:59 Oxygen Delivery Method Room Air 08/25/24 13:59 BMI result Body Mass Index 22.8 Tobacco/Smoking Status: Tobacco use Status Tobacco use date assessed 08/25/24 08/25/24 13:47 Patient Tobacco Use Status Never used Tobacco 08/25/24 13:46 e-Cigarette/Vaping Use Never Used 08/25/24 13:46 Thrive Assessment: Date of Thrive Assessment Date Thrive assessed 07/22/24 08/25/24 13:46 Currently or been in a relationship where the following occur: I choose not to answer Const General: cooperative, healthy appearing, comfortable and no acute distress Orientation/consciousness: patient oriented x3 HENMT Head: Yes normocephalic Ears: hearing grossly normal bilaterally General nose exam: Normal external nose present Eyes General: appearance normal, both eyes and all related structures Conjunctivae: conjunctivae normal Neck Neck: Yes full ROM and Yes no lymphadenopathy Resp Effort & Inspection: normal respiratory effort Auscultation: clear to auscultation bilaterally, no crackles, no rales, no rhonchi and no wheezes Cardio Rate: regular rate Rhythm: regular rhythm Skin General skin exam: no rashes or lesions noted Neuro General: patient oriented x3 Gait exam (Neuro): Normal gait present Extrem General: Yes normal to inspection, Yes full ROM and No edema Psych Affect: normal affect Attitude: cooperative Insight: Good insight present (Psych) Judgement: Good judgement present (Psych) Coding Level of Care Code Est Pt Level 3 (67984) Diagnoses Anxiety F41.9 Insomnia G47.00 Hypothyroidism E03.9 Hypercholesterolemia E78.00 Vitamin D deficiency E55.9 Sore throat J02.9 Enlarged tonsils J35.1 Assessment & Plan Assessment & Plan (1) Anxiety: Code(s): F41.9 - Anxiety disorder, unspecified Category: Medical Plan: Patient having reported anxiety and depression plan to start on trazodone nightly and follow up in 2 months to assess efficacy. (2) Insomnia: Code(s): G47.00 - Insomnia, unspecified Category: Medical Plan: Trazodone initiation was discussed for managing anxiety and sleep disturbances, starting at a lower dose and assessing tolerability. (3) Hypothyroidism: Code(s): E03.9 - Hypothyroidism, unspecified Category: Medical Plan: Most recent lab work is normal. Continue to monitor (4) Hypercholesterolemia: Code(s): E78.00 - Pure hypercholesterolemia, unspecified Category: Medical Plan: Avoid foods that are high in cholesterol such as red meat, fried foods, eggs and baked goods. Triglyceride goal of less than 150 and LDL goal of less than 130. Discussed medication at this time is not appropriate plan to implement dietary and lifestyle modification (5) Vitamin D deficiency: Code(s): E55.9 - Vitamin D deficiency, unspecified Category: Medical Plan: Supplement ordered. (6) Sore throat: Code(s): J02.9 - Acute pharyngitis, unspecified Category: Medical (7) Enlarged tonsils: Code(s): J35.1 - Hypertrophy of tonsils Category: Medical Plan This note was constructed using voice recognition software. While every effort has been made to ensure accuracy and change number operator, still areas may have been included sometimes these areas may affect the content or meeting of the given symptoms. Total time spent caring for the patient today was 20 minutes. This includes time spent before the visit reviewing the chart, time spent during the visit, and time spent after the visit and documentation. Patient was informed and verbally consented to the use of an ambient scribe for clinic note documentation during this visit. Medications: New cholecalciferol (vitamin D3) 25 mcg PO DAILY 90 caps 3RF trazodone 50 mg PO BEDTIME 30 tabs 1RF
[2024-08-25 13:59] VITALS: BP 130/86; PULSE 106; O2SAT 99; BMI 22.8
--- OUTSIDE RECORDS SUMMARY | 2024-08-25 16:11 | XMS_ITS | Data Portability ---
Author Organization [facility], , [facility] Address [address] [place] [address] Care Team Providers Care Streets [employer] Buildings Decorator Name Role Phone GAGAN JAMESON Language Therapist VIPUL ORTEZ Primary Care Provider Assessment Encounter Date Assessment Date Assessment LastModified by Organization Details LastModified Time 04/23/2020 04/23/2020 Patient agreed to this visit via a secure telehealth platform due to the COVID -19 pandemic. Patient understands this is a scheduled visit and the usual procedures with regard to billing and confidentialit y apply. Patient was notified that the provider location is [facility] Patient location: home During the visit the patient? s medical history and medical record were reviewed. The patient was notified to call our office for worsening or urgent symptoms. [email or web address] Not available 04/23/2020 11:15:56 Plan of Treatment Reminders Order Date Submit Date Provider Last Modified By Organization Details Last Modified Time Details Appointments None recorded. Lab TSH, serum or plasma 2021 022 [facility], [address] [place] [address], [id number], 3 23:13:04 T3, free, serum or plasma 2021 022 [facility], [address] [place] [address], [id number], 3 23:13:01 T4, free, serum 2021 022 [facility], [address] [place] [address], [id number], 3 23:13:02 mononucleo sis, heterophil e Ab, blood 2017 018 [facility], [address] [place] [address], [address], 8 14:55:00 Referral None recorded. Procedures None recorded. Surgeries None recorded. Imaging None recorded. Medication Orders amoxicilli n 875 mg-potassi um clavulanat e 125 mg tablet 2021 022 [facility] [address] ([facility]), [address], [place], [id number], 2 10:12:08 levothyrox ine 50 mcg tablet 2019 020 INTERFACE [facility], [address] [place], [address], 0 11:19:39 Patient TargetsNo targets recorded. Patient Instructions Encounter Date Encounter Id Patient Instructions Last Modified By Organization Details Last Modified Time 09/11/2017 [id number] Spent 25 minutes of iigp-oy-ovgo time, of which greater than 50% was in counseling. After a discussion of treatment options, which included consideration of best practices and patient preferences, the above treatment plan and objectives were adopted. [email or web address] Not available 09/12/2017 08:35:29 04/23/2020 [id number] Well Visit, Ages 18 to 65: Care Instructions [email or web address] Not available 04/23/2020 11:19:37 After a discussi on of treatment options, which included consideration of best practices and patient preferences, the above treatment plan and objectives were adopted. [email or web address] Not available 04/23/2020 12:09:20 11/06/2021 [id number] Well Visit, Ages 18 to 65: Care Instructions [email or web address] Not available 11/06/2021 10:31:35 Reason for Referral None Reported. Results Created Date Observation Date Name Description Value Unit Range Abnormal Flag Note LastModifiedBy Organization Detail LastModifiedTime 09/02/19 18 09/01/2017 BMP, serum or plasm a glucose 91 mg/dL 70-[address] [facility] [address] [place] [address], [address], 09/01/2017 11:45:24 09/02/19 18 09/01/2017 BMP, serum or plasm a BUN 13 mg/dL 7-18 Not Available [address], [address], 09/01/2017 11:45:24 09/02/19 18 09/01/2017 BMP, serum or plasm a creatinine 1.1 mg/dL 0.8-1. 3 Not Available [address], [address], 09/01/2017 11:45:24 09/02/19 18 09/01/2017 BMP, serum or plasm a B/C 11.8 ratio Not Available [address], [address], 09/01/2017 11:45:24 09/02/19 18 09/01/2017 BMP, serum or plasm a GFR -non 83.5 mL/mi n Recom sean d GFR by the Natio nal Kidne y Found ation >60 mL/mi n/1.7 3m2 - Nova l <60 mL/mi n/1.7 3m2 - Chron ic Kidne y Disea se <15 mL/mi n/1.7 3m2 - Kidne y Failu re Not Available [address], [address], 09/01/2017 11:45:24 09/02/19 18 09/01/2017 BMP, serum or plasm a GFR - if 101.1 mL/mi n For Afric an Ameri can patie nts: Resul ts Multi plied by 1.21 Not Available [address], [address], 09/01/2017 11:45:24 09/02/19 18 09/01/2017 BMP, serum or plasm a sodium 144 mmol/ L 136-14 5 Not Available [address], [address], 09/01/2017 11:45:24 09/02/19 18 09/01/2017 BMP, serum or plasm a potassium 3.9 mmol/ L 3.5-5. 1 Not Available [address], [address], 09/01/2017 11:45:24 09/02/19 18 09/01/2017 BMP, serum or plasm a chloride 105 mmol/ L 96-107 Not Available [address], [address], 09/01/2017 11:45:24 09/02/19 18 09/01/2017 BMP, serum or plasm a anion gap 9.9 5.0-15 .0 Not Available [address], [address], 09/01/2017 11:45:24 09/02/19 18 09/01/2017 BMP, serum or plasm a CO2 29 mmol/ L 21-32 Not Available [address], [address], 09/01/2017 11:45:24 09/02/19 18 09/01/2017 BMP, serum or plasm a calcium 9.4 mg/dL 8.5-10 .3 Not Available [address], [address], 09/01/2017 11:45:24 09/02/19 18 09/01/2017 CBC WBC 7.5 K/? ? ?L 4.2-9. 1 Not Available [address], [address], 09/01/2017 11:52:25 09/02/19 18 09/01/2017 CBC RBC 4.94 M/? ? ?L 4.63-6 .08 Not Available [address], [address], 09/01/2017 11:52:25 09/02/19 18 09/01/2017 CBC HGB 16.2 g/dL 13.7-1 7.5 Not Available [address], [address], 09/01/2017 11:52:25 09/02/19 18 09/01/2017 CBC HCT 46.5 % 40.1-5 1.0 Not Available [address], [address], 09/01/2017 11:52:25 09/02/19 18 09/01/2017 CBC MCV 94.1 ? ? ?L 79.0-9 2.2 high Not Available [address], [address], 09/01/2017 11:52:25 09/02/19 18 09/01/2017 CBC MCH 32.8 pg 25.7-3 2.2 high Not Available [address], [address], 09/01/2017 11:52:25 09/02/19 18 09/01/2017 CBC MCHC 34.8 g/dL 32.3-3 6.5 Not Available [address], [address], 09/01/2017 11:52:25 09/02/19 18 09/01/2017 CBC plt 265.0 K/? ? ?L 163.0- 337.0 Not Available [address], [address], 09/01/2017 11:52:25 09/02/19 18 09/01/2017 CBC MPV 9.4 9.4-12 .4 Not Available [address], [address], 09/01/2017 11:52:25 09/02/19 18 09/01/2017 CBC neut% 53.1 % 34.0-6 7.9 Not Available [address], [address], 09/01/2017 11:52:25 09/02/19 18 09/01/2017 CBC neut# 4.0 1.8-5. 4 Not Available [address], [address], 09/01/2017 11:52:25 09/02/19 18 09/01/2017 CBC lymph % 34.0 % 21.8-5 3.1 Not Available [address], [address], 09/01/2017 11:52:25 09/02/19 18 09/01/2017 CBC lymph # 2.5 K/? ? ?L 1.3-3. 6 Not Available [address], [address], 09/01/2017 11:52:25 09/02/19 18 09/01/2017 CBC mono% 8.8 % 5.3-12 .2 Not Available [address], [address], 09/01/2017 11:52:25 09/02/19 18 09/01/2017 CBC mono# 0.7 0.3-0. 8 Not Available [address], [address], 09/01/2017 11:52:25 09/02/19 18 09/01/2017 CBC eo% 3.6 % 0.8-7. 0 Not Available [address], [address], 09/01/2017 11:52:25 09/02/19 18 09/01/2017 CBC eo# 0.3 0.0-0. 5 Not Available [address], [address], 09/01/2017 11:52:25 09/02/19 18 09/01/2017 CBC baso% 0.5 % 0.2-1. 2 Not Available [address], [address], 09/01/2017 11:52:25 09/02/19 18 09/01/2017 CBC baso# 0.0 0.0-0. 1 Not Available [address], [address], 09/01/2017 11:52:25 09/02/19 18 09/01/2017 CBC RDW-CV 12.4 % 11.6-1 4.4 Not Available [address], [address], 09/01/2017 11:52:25 09/02/19 18 09/01/2017 HbA1c (hemo globi n A1c), blood hemoglobin A1C 4.8 % 4.8-6. 0 Goal: <7% in Patie nts with Diabe meenu Not Available [address], [address], 09/01/2017 12:16:53 09/02/19 18 09/01/2017 HbA1c (hemo globi n A1c), blood estimated average glucose 91.1 mg/dL Not Available [address], [address], 09/01/2017 12:16:53 09/02/19 18 09/01/2017 TSH, serum or plasm a TSH 7.67 uIU/m L 0.50-6 .00 high The Ameri can Colle ge of Endoc rinol ogy and Ameri can Thyro id Assoc iatio n recom mend goal TSH value s betwe en 0.4-4 .0 mIU/m L. Not Available [address], [address], 09/01/2017 14:25:52 09/02/19 18 09/01/2017 vitam in [...] er than 30 ng/mL . Not Available [address] [place], [address], 09/01/2017 14:25:52 09/02/19 18 09/03/2017 vitam in B12, serum vitamin B12 465 pg/mL 230-[address] [facility] [address] [place], [address], 09/03/2017 12:59:50 09/02/19 18 09/03/2017 lyme igg + igm Ab, weste rn blot, serum lyme disease Ab(IgG),blot POSITI VE negati ve abnormal Not Available [facility] [place] [facility] [address], [address], 09/03/2017 23:46:00 09/02/19 18 09/03/2017 lyme igg + igm Ab, weste rn blot, serum 18 kd (IgG) band REACTI VE abnormal Not Available [facility] [place] [facility] [address], [address], 09/03/2017 23:46:00 09/02/19 18 09/03/2017 lyme igg + igm Ab, weste rn blot, serum 23 kd (IgG) band NON-RE ACTIVE normal Not Available [facility] [place] [facility] [address], [address], 09/03/2017 23:46:00 09/02/19 18 09/03/2017 lyme igg + igm Ab, weste rn blot, serum 28 kd (IgG) band REACTI VE abnormal Not Available [facility] [place] [facility] [address], [address], 09/03/2017 23:46:00 09/02/19 18 09/03/2017 lyme igg + igm Ab, weste rn blot, serum 30 kd (IgG) band NON-RE ACTIVE normal Not Available [facility] [place] [facility] [address], [address], 09/03/2017 23:46:00 09/02/19 18 09/03/2017 lyme igg + igm Ab, weste rn blot, serum 39 kd (IgG) band REACTI VE abnormal Not Available [facility] [address], [place], [address], 09/03/2017 23:46:00 09/02/19 18 09/03/2017 lyme igg + igm Ab, weste rn blot, serum 41 kd (IgG) band NON-RE ACTIVE normal Not Available [facility] [address], [place], [address], 09/03/2017 23:46:00 09/02/19 18 09/03/2017 lyme igg + igm Ab, weste rn blot, serum 45 kd (IgG) band REACTI VE abnormal Not Available [facility] [address], [place], [address], 09/03/2017 23:46:00 09/02/19 18 09/03/2017 lyme igg + igm Ab, weste rn blot, serum 58 kd (IgG) band REACTI VE abnormal Not Available [facility] [address], [place], [address], 09/03/2017 23:46:00 09/02/19 18 09/03/2017 lyme igg + igm Ab, weste rn blot, serum 66 kd (IgG) band NON-RE ACTIVE normal Not Available [facility] [address], [place], [address], 09/03/2017 23:46:00 09/02/19 18 09/03/2017 lyme igg + igm Ab, weste rn blot, serum 93 kd (IgG) band NON-RE ACTIVE normal Not Available [facility] [address], [place], [address], 09/03/2017 23:46:00 09/02/19 18 09/03/2017 lyme igg + igm Ab, weste rn blot, serum lyme disease Ab(IgM),blot NEGATI VE negati ve normal Not Available [facility] [place] [facility] [address], [address], 09/03/2017 23:46:00 09/02/19 18 09/03/2017 lyme igg + igm Ab, weste rn blot, serum 23 kd (IgM) band REACTI VE abnormal Not Available [facility] [place] [facility] [address], [address], 09/03/2017 23:46:00 09/02/19 18 09/03/2017 lyme igg + igm Ab, weste rn blot, serum 39 kd (IgM) band NON-RE ACTIVE normal Not Available [facility] [place] [facility] [address], [address], 09/03/2017 23:46:00 09/02/19 18 09/03/2017 lyme igg [...] to other chel chete s. Not Available [facility] [address] Jose De Jesus Vasquez, [place], [address], 09/03/2017 23:46:00 02/13/20 18 02/12/2018 pocst pa strep A POC NEGATI VE Not Available [address], [address], 02/12/2018 12:18:33 02/13/20 18 02/12/2018 monon ucleo sis, heter ophil e Ab, blood mono NEGATI VE negati ve Not Available [address], [address], 02/12/2018 14:54:59 02/13/20 18 02/12/2018 vitam in [...] er than 30 ng/mL . Not Available [address], [address], 02/12/2018 15:27:58 02/13/20 18 02/12/2018 TSH, serum or plasm a TSH 3.74 uIU/m L 0.50-6 .00 The Ameri can Colle ge of Endoc rinol ogy and Ameri can Thyro id Assoc iatio n recom mend goal TSH value s betwe en 0.4-4 .0 mIU/m L. Not Available [address], [address], 02/12/2018 15:42:27 04/18/2004/19/2020 TSH, serum or plasm a TSH 1.79 mIU/L 0.40-4 [address] [facility] [place] [facility] [address], [place], [address], 04/19/2020 04:36:42 10/31/19 22 10/31/2021 TSH TSH 2.10 mIU/L 0.40-4 .50 normal Not Available [facility] [place] [facility] [address], [place], [address], 10/31/2021 10:15:03 07/21/19 23 07/21/2022 T3, FREE T3, free 3.7 pg/mL 2.3-4. 2 normal Not Available [facility] [place] [facility] [address], [place], [address], 07/21/2022 23:13:01 07/21/19 23 07/21/2022 T4, FREE T4, free 1.1 NG/dL 0.8-1. 8 normal Not Available [facility] [place] [facility] [address], [place], [address], 07/21/2022 23:13:02 07/21/19 23 07/21/2022 TSH TSH 3.79 mIU/L 0.40-4 .50 normal Not Available [facility] [address], [place], [address], 07/21/2022 23:13:04 Result Notes None recorded. Problems Name Problem SNOMED Code Status Onset Date Resolution Date Notes Provider Name and Address Organization Details Recorded Time Cannabis dependence, episodic 486211465 Completed 09/01/2017 Leonid Avalos MD [address] [place], [place] [address] [place], [address], [facility] 8 15:26:23 Hyperprolac tinemia 657889034 Completed 09/01/2017 Leonid Avalos MD [address] [place], [place] [address] [place], [address], [facility] 8 15:26:21 Nondependen t cannabis abuse, continuous 619485534 Active 2021 Linh Hussein PA-C [address] [facility] [place], [address], [facility] 2 16:28:53 Thyroid stimulating hormone level above reference range 714556478 Active 2021 Linh Hussein PA-C [address] [place], [place] [address], [address], [facility] 2 16:28:54 Problem Notes None recorded. Procedures Surgical History Date Name Laterality Status Provider Name and Address Organization Details Recorded Time 0 prevention-orion ual alcohol misuse screening completed Shanda Sánchez LPN [facility] 04/23/2020 10:48:40 8 POC Strep Testing completed Penelope Russ [facility] 02/12/2018 12:05:57 7 POC Urinalysis Testing completed Maegan Lim [facility] 10/13/2016 11:08:46 6 POC Strep Testing completed Batool Hsu [facility] 04/18/2016 10:20:19 Other (specify) completed Jaymie Pryor MD [address] [place] [address], [phone], [facility] 01/03/2014 11:23:07 Imaging Results None recorded. Procedure [...] Updated DateTime 09/11/2017 175.26 cm 21.3 kg/m2 04880.4 g 96 mm[Hg] 60 mm[Hg] Lindsey White [facility] 8 10:32:04 Date Recorded Body height Body mass index (BMI) Body weight Heart rate Body temperature Systolic blood pressure Diastolic blood pressure Provider Name and Address Organization Details Last Updated DateTime 8 175.26 cm 21 kg/m2 92806.2 2 g 76 /min 98 [degF] 122 mm[Hg] 74 mm[Hg] Penelope Russ [facility] 8 12:05:09 Date Recorded Body height Body mass index (BMI) Body weight Provider Name and Address Organization Details Last Updated DateTime 04/23/2020 175.26 cm 23 kg/m2 84463.41 g Shanda Sánchez LPN [facility] 04/23/2020 10:59:21 Date Recorded Body weight Body mass index (BMI) Body height Heart rate Systolic blood pressure Diastolic blood pressure Provider Name and Address Organization Details Last Updated DateTime 2 38147.9 2 g 22.4 kg/m2 176.53 cm 68 /min 114 mm[Hg] 68 mm[Hg] Latonia Gant MA [facility] 2 10:03:22 Date Recorded Body height Body mass index (BMI) Body weight Body temperature Heart rate Oxygen saturation Oxygen saturation in Arterial blood by Pulse oximetry Systolic blood pressure Diastolic blood pressure Provider Name and Address Organization Details Last Updated DateTime 2 176.53 cm 21.6 kg/m2 71410.3 7 g 98.3 [degF] 94 /min 99 % 99 % 120 mm[Hg] 68 mm[Hg] Dakota Dowell MA [facility] 2 09:50:54 Social History Question Answer Notes LastModified by Organizat ion Details LastModified Time Tobacco Smoking Status [facility] 11/06/2021 09:55:47 Do You Have An Advance Directive? Yes Information not available 01/03/2014 What Is Your Level Of Alcohol Consumption? Occasional Information not available 05/15/2022 Do You Wear A Helmet When Biking? Yes [email or web address] Information not available 04/23/2020 What Is Your [...] E-cigarettes Or Vape? Never Used Electronic Cigarettes [email or web address] Information not available 04/23/2020 What Is Your Occupation? [employer] [email or web address] Information not available 04/23/2020 When Did You Quit Smoking? 6-10yearssinc [email or web address] Information not available 11/06/2021 Are There Any Guns Present In Your Home? No [email or web address] Information not available 04/23/2020 Do You Use Insect Repellent Routinely? Yes Information not available 11/06/2021 Live Alone Or With Others? With Others Information not available 01/03/2014 Patient Has Health Care Proxy Signed And In Chart No Jodi [email or web address] Information not available 04/05/2018 Marital Status Domestic Partner [email or web address] Information not available 04/23/2020 Mosquito Repellent Used Routinely Yes [email or web address] Information not available 04/23/2020 What Was The [...] Used Smokeless Tobacco? Never Used Smokeless Tobacco [email or web address] Information not available 04/23/2020 General Stress Level Medium Varies Situational [email or web address] Information not available 04/23/2020 Do You Use Any Illicit Or Recreational Drugs? Yes Information not available 11/06/2021 Do You Use Sunscreen Routinely? Yes [email or web address] Information not available 04/23/2020 How Many Years [...] 30 mcg/0.3 mL dose 08/29/2020 [facility] 11/06/2021 09:53:54 COVID-19, mRNA, LNP-S, PF, 30 mcg/0.3 mL dose 09/19/2020 [facility] 11/06/2021 09:54:01 Past Encounters Encounter ID Performer Location Encounter Start Date Encounter Closed Date Diagnosis/Indication Diagnosis SNOMED-CT Code Diagnosis ICD10 Code Diagnosis Note [id number] Batool Hsu [place] [facility], [address] [place] [address] 01/03/2014 10:21:04 01/03/2014 12:06:37 Adult health examination 608079408 see Risk Assessment and Lifestyle Change Counseling section above Counseling 400642034 Fatigue 84358470 Nausea 537378918 Palpitations 17769753 Anxiety 72963574 Tinea corporis 55775375 [id number] [facility], [address] [place] [address] 11/08/2014 09:49:28 11/09/2014 08:32:18 Dyspnea 951115425 Patient with intermitte nt dyspnea triggered by smoking. No respirator y difficulty currently. Normal O2 sat and normal respirator y exam. Suspect reactive airway. Check CXR. Trial of Albuterol prn. Follow up in 2 months for a PHA visit. Consider Spirometry based on his response to Albuterol. Gynecomastia 2883144 Pat ient with bilateral breast developmen t. No pain. No discharge or bleeding. However, he is bothered by them cosmetical ly. Will check TSH, Prolactin, Testostero ne and LFT. [id number] Endocrino logy, [facility] [address] [facility] [place] [address] 01/17/2015 08:28:55 01/17/2015 09:09:06 Cannabis dependence, episodic 072383609 -encourage cessation marijuana Hyperprolactinemia 259903880 -encourage cessation marijuana -macroprol actin [id number] Leonid Avalos MD , [facility], [address] [place] [address] 04/18/2016 10:08:47 04/22/2016 09:54:56 Streptococcal sore throat 24571343 J02.0 Patient with clinical presentati on of Strep pharyngiti s. Also with positive Rapid Strep test. Encouraged supportive care with ample hydration and saline gargle. Will treat with PCN VK 500mg po tid for 10 days. May continue with NSAIDs prn for fever/pain . Advised to contact the clinic with any worsening symptoms. Indication s for UC/ER use reviewed. Failure to gain weight 07297467 R62.51 Reports difficulty gaining weight. No acute weight loss. Denies pain or fatigue. Check TSH/CMP and CBC. [id number] Leonid Avalos MD , [facility], [address] [place] [address] 10/13/2016 10:57:52 10/13/2016 12:11:06 Tinea corporis 88199345 B35.4 Involving the groin area. Advised to keep the area clean and dry. Treat with Clotrimazo le cream. Abdominal pain 45647297 R10.9 Patient with ongoing, generalize d abdominal [...] Follow up in 1 month. Loose stool 965787964 R1 9.5 Took antibiotic (PCN) 2 months ago for Strep pharyngiti s. Will check for stool studies including C. diff, O&P and stool culture. No BRBPR or melena. [id number] XIMENA Michaels , [facility], [address] [place] [address] 02/23/2017 10:44:53 02/24/2017 07:54:02 Acute sinusitis 15820518 J01.90 Pt presents today for evaluation of [...] symptoms persist or worsen at any time. [id number] Berry Cardozo , [facility], [address] [place] [address] 04/15/2017 08:41:31 04/15/2017 16:17:45 Dysphagia 42507063 R13.10 [id number] Leonid Avalos MD , [facility], [address] [place] [address] 09/01/2017 08:25:39 09/02/2017 09:50:10 Fatigue 93739732 R53.83 History of Lyme disease at age [...] for re-evaluat ion. Vitamin D deficiency 347 21231 E55.9 [id number] Leonid Avalos MD , [facility], [address] [place] [address] 09/11/2017 10:06:29 09/11/2017 15:41:53 Hypothyroidism 51285544 E03.9 Patient with fatigue. Found to have elevated TSH, markedly decreased Vitamin D and positive Lyme IgG (5/10). Treatments for all three instituted . Now on Levothyrox ine 50mcg daily. Recommende d repeat TSH in 2 months. Vitamin D deficiency 347 47485 E55.9 Started on Vitamin D 50,000 units weekly. Advised to take Vitamin D 2,000 units daily after 2 months Lyme disease 56251981 A6 9.20 Started 4-week treatment of Doxycyclin e. States he is already feeling better. Discussed about probiotic use. Advised to schedule for a wellness visit. [id number] Jeyson Lopez MD , [facility], [address] [place] [address] 02/12/2018 11:42:48 02/15/2018 12:47:45 Acute upper respiratory infection 18570933 J06.9 Educated patient that URI is a [...] failure to resolve in 2-4 weeks. Pharyngitis 198171160 J0 2.9 [id number] Leonid Avalos MD , [facility], [address] [place] [address] 04/23/2020 10:54:02 04/24/2020 08:29:40 Adult health examination 558870132 Z00.00 Encouraged Influenza vaccine. Recommende d to see [facility] to see if he could qualify/bu y-in for [facility] . Counseling 535228813 Z71 .9 Depression screening 171 353761 Z13.89 depression screening tool administer ed, entered into emr, scored and discussed, time greater than 7.5 minutes Screening for alcohol abuse 275900401 Z13.39 Hypothyroidism 39232715 E03.9 Recent TSH therapeuti c at 1.79 (04/2020). Will continue the current dose of Levothyrox ine. [id number] ARNULFO Antonio, [facility], [address] [place] [address] 11/06/2021 09:40:47 12/05/2021 16:45:49 Adult health examination 666582152 Z00.00 Wellness exam: -Labs 10/30/21 and previous historical labs reviewed; vaccines reviewed. Counseling 837111354 Z71 .9 Depression screening 171 465963 Z13.31 depression screening tool administer ed, entered into emr, scored and discussed, time greater than 7.5 minutes Screening for alcohol abuse 994632187 Z13.[address] imulating hormone level above reference range 895921047 R79.89 Pt had elevated TSH back in [...] medication . Nondepende nt cannabis abuse, continuous 479857623 F12.10 Discussed adverse effects of daily chronic use and pt wishes to cut down also. [id number] Aminah Lopez NP , [facility], [address] [place] [address] 05/15/2022 09:38:58 05/15/2022 15:05:13 Vaccination delayed [id number] 71743 Z28.39 flu & Td Acute maxi llary sinusitis 56446857 J01.00 Health Concerns Section Related Observation LastModified by Organization Detai ls LastModified Time None Recorded Concern Status LastModified by Organization Details LastModified Time None Recorded Advance Directives Directive Y: Payers Encounter Date Sequence Insurance Name Policy Number Policy Monreal Covered Member ID Monreal Member ID Guarantor Name 09/11/2017 1 [facility] (H[facility]) [id number] Duncan P Rey [id number] Duncan P Rey 02/12/2018 1 [facility] [place] [place] - DEDUCTIBLE (HMO) [id number] Duncan P Rey [id number] Duncan P Rey 04/23/2020 1 *SELF PAY* [...] ROM. Has tactile fever. Leonid Avalos MD [address] [place] [address], [phone], [facility] [place] 09/12/2017 08:35:52 02/12/2018 text/html pt of Dr Avalos st x 12 days, white spots, fever, diaphoretic. ear ache, had stopped thyroid med- felt sick at time taking. sl nasla ocngestion, cough, nausea. 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 Works at [employer]. Previously seen for multiple constitutional symptoms. Reported sunlight sensitivity, vision issues (transient blurriness), multiple joint pain, short-term memory loss, occasional rashes, muscle aches, dizziness and facial numbness. Diagnosed with low Vitamin D, elevated TSH and 10/15 positive Lyme IgG. Treatments for all 3 [...] 23 24 25}} minutes. Leonid Avalos MD [address] [place] [address], [phone], [facility] [place] 04/23/2020 12:10:15 11/06/2021 text/html Risk Assessment and [...] back to baseline.COVID vaccinated. 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 Lives with girlfriend. No children. Smokes MJ multiple times daily every day; says it is routine part of every day life for many years, starting late teens. States has alcoholism in the family and so tries to stay away from ETOH in general. He realizes that the daily MJ can have adverse effects and is thinking about cutting down. Linh Hussein PA-C [address] [place], [phone], [facility] [place] 11/06/2021 16:32:58 05/15/2022 text/html Patient is here [...] be sinus infection Aminah Lopez NP [address] [place], [phone], [facility] [place] 05/15/2022 10:16:06
== END 2024-08-25 14:43 | disposition home or self-care (01) ==
LOC: HO.HMCH 13:37
DX: F41.9 Anxiety disorder, unspecified (principal); G47.00 Insomnia, unspecified; E03.9 Hypothyroidism, unspecified; E78.00 Pure hypercholesterolemia, unspecified; E55.9 Vitamin D deficiency, unspecified; J02.9 Acute pharyngitis, unspecified; J35.1 Hypertrophy of tonsils